=== PATIENT | male | born 1960 | race Caucasian/White ===

== ENCOUNTER → 2018-01-12 09:56 | Outpatient (POV) | payer BC, MEDICARE, SELFPAY ==
[2018-01-12 10:09] VITALS: BP 145/87; PULSE 78; RESP 18; O2SAT 98
--- NOTE | 2018-01-12 11:38 | HMH.PMCON ---
Assessment and Plan (1) Peripheral neuropathy Current visit: Yes Status: Chronic Category: Medical Code(s): G62.9 - Polyneuropathy, unspecified (2) Generalized pain Current visit: Yes Status: Chronic Category: Medical Code(s): R52 - Pain, unspecified (3) Arthritis Current visit: Yes Status: Chronic Category: Medical Code(s): M19.90 - Unspecified osteoarthritis, unspecified site - Assessment and plan all Dx Assessment and Plan for all problems:: I had a discussion about managing his neuropathy because he states that this is his worst pain. I gave him information on neuro stimulation and answered his questions in regards to this. Patient is to call our office if he is interested in pursuing this. At this time the patient is not a narcotic candidate. This note was dictated using voice recognition software and may contain errors or omissions HPI - Data of Consult Consult date: 01/12/18 Requesting Physician: Kimmy Lubin APRN Primary Care Provider: Lauri Foreman - Consult Narrative Reason for consult: Generalized pain History of present illness: Mr. Garg is a 57 year old male presents for consultation in regards to generalized pain. Patient does have rheumatoid arthritis and was being followed by an arthritis specialist however he was taking methotrexate and he states that this does not help him. Patient has stopped taking methotrexate. Patient states his pain is a 9 out of 10 mostly in his bilateral hands and feet he states he has numbness and tingling at all times. Patient has been diagnosed with peripheral neuropathy in the past. Patient's tried gabapentin and Lyrica with no success. Patient is uninterested in nerve blocks. Patient's tried and failed physical therapy with no relief. Patient states all activity increases his pain while rest decreases his pain. CC: Kimmy Lubin APRN [facility] History I have reviewed the patient's past medical history: Yes Medical History: Reports:: Hypertension Denies:: Diabetes Mellitus Type 1, Diabetes Mellitus Type 2 Other Medical History: Reports: Arthritis Laterality Cases: Bilateral: Total Knee Replacement - *Social History Alcohol Intake: never Occupational Status: disabled Housing: house Household Members: spouse - Psychiatric History Expresses thoughts of harming self/others: None Suicide Plan Description: No Plan *Family Hx:: Unable to obtain Review of Systems - Review of Systems ROS General: no recent weight change, no fever, difficulty sleeping due to pain Respiratory: no cough, no shortness of air, no recurring pulmonary infections Cardiovascular/Peripheral Vascular: No chest pain, No palpitations, no edema, no shortness of breath. Gastrointestinal: no incontinence, normal bowel movements reported Genitourinary: no incontinence Musculoskeletal: Generalized pain, bilateral hand pain and foot pain, bilateral knee pain Psychiatric: normal mood/ affect Neurological: [denies weakness in extremities], [denies balance issues] Objective Vital signs: Pulse Resp BP Pulse Ox 78 18 145/87 98 01/12/18 10:01/12/18 10:01/12/18 10:01/12/18 10:09 Narrative: Physical Exam General: Alert and oriented x3, no acute distress, pleasant and cooperative, [on room air] Lungs: Resps E/U, Symmetrical chest expansion, Eyes: PERRL Musculoskeletal: Flexion and extension of lumbar spine somewhat guarded secondary to pain, deep tendon reflexes normal, strength in upper and lower extremities [5/5], [abnormal gait noted] Neurological: speech clear, glass finisher equal, no gross sensory deficits Opioid Risk Tool - Opioid Risk Tool-Male Family hx alcohol abuse: N Family hx illegal drugs: N Family hx rx drug abuse: N Personal hx alcohol abuse: N Personal hx illegal drugs: N Personal hx rx drug abuse: N Age: 45+ Hx of sexual abuse: N Mental health issues-ADD,OCD,Bipolar, etc: N Hx of depression:
--- NOTE | 2018-01-12 11:42 | P.CONS_ITS ---
Assessment and Plan (1) Peripheral neuropathy Current visit: Yes Status: Chronic Category: Medical Code(s): G62.9 - Polyneuropathy, unspecified (2) Generalized pain Current visit: Yes Status: Chronic Category: Medical Code(s): R52 - Pain, unspecified (3) Arthritis Current visit: Yes Status: Chronic Category: Medical Code(s): M19.90 - Unspecified osteoarthritis, unspecified site - Assessment and plan all Dx Assessment and Plan for all problems:: I had a discussion about managing his neuropathy because he states that this is his worst pain. I gave him information on neuro stimulation and answered his questions in regards to this. Patient is to call our office if he is interested in pursuing this. At this time the patient is not a narcotic candidate. This note was dictated using voice recognition software and may contain errors or omissions HPI - Data of Consult Consult date: 01/12/18 Requesting Physician: Kimmy Lubin APRN Primary Care Provider: Lauri Foreman - Consult Narrative Reason for consult: Generalized pain History of present illness: Mr. Garg is a 57 year old male presents for consultation in regards to generalized pain. Patient does have rheumatoid arthritis and was being followed by an arthritis specialist however he was taking methotrexate and he states that this does not help him. Patient has stopped taking methotrexate. Patient states his pain is a 9 out of 10 mostly in his bilateral hands and feet he states he has numbness and tingling at all times. Patient has been diagnosed with peripheral neuropathy in the past. Patient's tried gabapentin and Lyrica with no success. Patient is uninterested in nerve blocks. Patient' s tried and failed physical therapy with no relief. Patient states all activity increases his pain while rest decreases his pain. CC: Kimmy Lubin APRN [facility] History I have reviewed the patient's past medical history: Yes Medical History: Reports:: Hypertension Denies:: Diabetes Mellitus Type 1, Diabetes Mellitus Type 2 Other Medical History: Reports: Arthritis Laterality Cases: Bilateral: Total Knee Replacement - *Social History Alcohol Intake: never Occupational Status: disabled Housing: house Household Members: spouse - Psychiatric History Expresses thoughts of harming self/others: None Suicide Plan Description: No Plan *Family Hx:: Unable to obtain Review of Systems - Review of Systems ROS General: no recent weight change, no fever, difficulty sleeping due to pain Respiratory: no cough, no shortness of air, no recurring pulmonary infections Cardiovascular/Peripheral Vascular: No chest pain, No palpitations, no edema, no shortness of breath. Gastrointestinal: no incontinence, normal bowel movements reported Genitourinary: no incontinence Musculoskeletal: Generalized pain, bilateral hand pain and foot pain, bilateral knee pain Psychiatric: normal mood/ affect Neurological: [denies weakness in extremities], [denies balance issues] Objective Vital signs: Pulse Resp BP Pulse Ox 78 18 145/87 98 01/12/18 10:01/12/18 10:01/12/18 10:01/12/18 10:09 Narrative: Physical Exam General: Alert and oriented x3, no acute distress, pleasant and cooperative, [ on room air] Lungs: Resps E/U, Symmetrical chest expansion, Eyes: PERRL Musculoskeletal: Flexion and extension of lumbar spine somewhat guarded secondary
== END ==
PROVIDERS: PCP Internal Medicine; Visit Provider Clinical Nurse Specialist Family Health
DX: G62.9 Polyneuropathy, unspecified (principal); R52 Pain, unspecified; M19.90 Unspecified osteoarthritis, unspecified site
CPT/HCPCS: 99202